=== PATIENT | female | born 1995 | race Caucasian/White ===

== ENCOUNTER 2017-08-17 08:14 | Inpatient (IN) | payer BC, SELFPAY ==
[~2017-08-17] VITALS: Ht 162.6 cm; Wt 104.3 kg
--- NOTE | ~2017-08-17 | CNG ---
[facility] [place] [address] CYTO-NONGYN REPORT PROCEDURE Name: RIBERAKYLER L Room #: 432-P DIS IN M.R.#: [id number] Admission: 08/17/17 Date of : 89 Discharge: 08/18/17 Report #: [id number] Path Case #: [id number] CYTOPATHOLOGY REPORT COLLECTION DATE: 08/17/2017 RECEIVED DATE: 08/19/2017 SUBMITTING PHYS: Schuyler Butler M.D. OTHER PHYS: Dr. Kiley Lee CLINICAL HISTORY: Blurry vision, tunnel vision, lesion SPECIMEN(S) RECEIVED: A.Cerebrospinal fluid * * * * * * * * * * * * FINAL DIAGNOSIS: A. Cerebrospinal fluid: - No malignant cells identified. -Lymphocytes and amorphous background debris identified. PATHOLOGIST: Bony Angela M.D. REPORT ELECTRONICALLY SIGNED BY: Bony Angela M.D. DATE/TIME: 08/20/2017 12:38 * * * * * * * * * * * * GROSS PATHOLOGY: A. Cerebrospinal fluid: The specimen is submitted unfixed, labeled "Kyler Ribera". Received by the Cytology Department is 4 mL of clear colorless fluid. One ThinPrep slide was prepared. (mm 08.19.2017) MINING TECHNICIAN(S): EVELIA Robbins([facility]) INITIAL CPT CODE(S): A; 80940 Professional services performed by [facility] at [facility] [address] , [place] [address] Technical services performed by [facility] at [address] [place] [address]., [address], [place] [address]. [facility] [address] [place] [address], [facility] [address] [place] [address] PHONE: [phone] [facility] [address] [place] [address] CYTO-NONGYN REPORT PROCEDURE Name: KYLER RIBERA Room #: 432-P DIS IN M.R.#: [id number] Admission: 08/17/17 Date of : 89 Discharge: 08/18/17 Report #: [id number] Path Case #: [id number] DIRECTOR: Jean Pierre Winn M.D. * * * END OF REPORT * * *
[~2017-08-17 08:14] MED LIST: ACETAMINOPHEN-120 ML PO; CRYSELLE1 EACH PO; IBUPROFEN 800800 M1 PO; LOW-OGESTREL1 EACH PO; NORCO 5-325 TA1 EACH PO; PHENERGAN 25 MG25 MG PO; TRAMADOL 50 MG50 MG PO; UNICOMPLEX M TA1 TA1 PO; VALACYCLOVIR500 MG PO; ZOFRAN ODT4 MG PO; ZPAK PO
[2017-08-17 11:47] LABS: HEMATOCRIT 43.1 % (37.0-47.0); HEMOGLOBIN 14.9 gm/dL (12.0-15.0); MCHC 34.7 g/dL (28.0-37.0); MCV 86.7 fL (80.0-100.0); RBC 4.97 mil/uL (4.20-5.00); RDW 12.6 % (10.5-14.5); WBC 5.2 thou/uL (4.0-11.0)
[2017-08-17 12:00] LABS: APTT 26.6 Seconds (24.5-32.8); PROTIME 10.3 Seconds (9.3-11.4)
[2017-08-17 12:07] LABS: CALCIUM 9.1 mg/dL (8.5-10.1); CREATININE 0.8 mg/dL (0.6-1.0); POTASSIUM 3.4 mmol/L (3.5-5.1)
[2017-08-17 12:12] LABS: ALBUMIN 3.2 g/dL (3.4-5.0); TOTAL BILIRUBIN 0.3 mg/dL (<0.1-1.0); TOTAL PROTEIN 7.5 g/dL (6.4-8.2)
[2017-08-17 12:29] LABS: TSH 2.602 uIU/mL (0.358-3.740)
[2017-08-17 13:03] LABS: ESR (SEDRATE) 15 mm/hr (0-20)
[2017-08-17 14:32] VITALS: BP 125/63
[2017-08-17 14:40] LABS: CSF GLUCOSE 48 mg/dL (40-70); CSF PROTEIN 18 mg/dL (15-45)
[2017-08-17 14:46] LABS: CSF CLARITY CLEAR; CSF COLOR COLORLESS; VOLUME 12.5 ml
[2017-08-17 15:21] LABS: CSF RBC 3 /mm3
[2017-08-17 15:26] LABS: CSF WBC 18 /mm3 (0-10)
[2017-08-17 15:35] VITALS: BP 106/52
[2017-08-17 16:11] LABS: CSF EOSINOPHILS 0 %; CSF LYMPHOCYTES 96 %; CSF MONONUCLEARS 4 %; CSF POLYS 0 %
[2017-08-17 16:30] VITALS: BP 111/62
[2017-08-17 17:30] VITALS: BP 130/55
[2017-08-17 20:43] VITALS: BP 143/86
[2017-08-18 04:13] VITALS: BP 111/64
[2017-08-18 08:03] VITALS: BP 122/72
[2017-08-18 10:24] VITALS: BP 122/72
[2017-08-18 14:56] VITALS: BP 122/72
[2017-08-18 22:05] LABS: LYME ANTIBODY SCREEN* <0.91 ISR (0.00-0.90)
[2017-08-19 11:07] LABS: SERUM ALBUMIN 3.9 g/dL (3.5-5.5)
[2017-08-21 13:12] LABS: CSF IgG 3.3 mg/dL (0.0-8.6)
== END 2017-08-18 15:21 | disposition home or self-care (01) | DRG 59 ==
LOC: 4E 08:14
PROVIDERS: Psychiatry & Neurology Neuromuscular Medicine
DX: G35 Multiple sclerosis (principal); E44.1 Mild protein-calorie malnutrition; G93.2 Benign intracranial hypertension; H53.8 Other visual disturbances; Z88.1 Allergy status to other antibiotic agents
CPT/HCPCS: 10183